=== PATIENT | male | born 1975 | race Caucasian/White ===

== ENCOUNTER 2018-02-20 15:32 | Observation (INO) | payer OTHER ==
[2018-02-20 15:48] VITALS: BMI 25.7
--- NOTE | 2018-02-20 15:54 | PDOC ---
Rapid Medical Evaluation Medical Evaluation: Allergies Allergy/AdvReac Type Severity Reaction Status Date / Time No Known Allergies Allergy Verified 02/20/18 15:44 Vital Signs Temp Pulse Resp BP Pulse Ox 98.6 F 83 18 108/75 96 02/20/18 15:44 02/20/18 15:44 02/20/18 15:44 02/20/18 15:44 02/20/18 15:44 02/20/18 15:49 I have performed a brief in-person evaluation of this patient. The patient presents with a chief complaint of: LUQ/LLQ pain with nausea for 4 days. report decreased appetite. Denies diarrhea, feels he might be constipated. Denies fever. Pertinent physical exam findings: A&O x 3. mild tenderness to LLQ w/o guarding or rebound I have ordered the following: CBC, CMP, Lactic acid. amylase, lipase The patient will proceed to the ED for further evaluation Discharge Disposition - Diagnosis LLQ abdominal pain - Referrals Referrals: Terry Hood MD [Primary Care Provider] - - Patient Instructions - Post Discharge Activity
--- NOTE | 2018-02-20 15:54 | PDOC ---
History of Present Illness - General Chief Complaint: Pain, Acute Stated Complaint: PAIN Time Seen by Provider: 02/20/18 15:54 - History of Present Illness Initial Comments: 02/20/18 15:54 Mr. Beverly is a 42 yo male w/ pmh of recent hospital stay for pancreatitis (-11/09) who presents for evaluation of 4-5 day history of nausea w/out vomiting and abdominal pain. Patient reports he took a left over percocet for the pain which he believes constipated him until this morning when he had a loose, foul smelling bowel movement. Patient reports this feels identical to his previous episode of pancreatitis. He describes his abdominal pain as moving and localized to left side of his abdomen. He also endorses intermittent chest pains unrelated to movement that he reports he also had during his previous pancreatitis episode. The patient denies shortness of breath, headache and dizziness. Denies fever, chills, and vomit Denies dysuria, frequency, urgency and hematuria. Past History - Past Medical History Allergies/Adverse Reactions: Allergies Allergy/AdvReac Type Severity Reaction Status Date / Time No Known Allergies Allergy Verified 02/20/18 15:44 Home Medications: Ambulatory Orders Atorvastatin Ca [Lipitor] 10 mg PO HS #7 tablet 11/09/17 oxyCODONE HCL [Roxicodone -] 5 mg PO Q6H PRN #12 tablet MDD 4 11/09/17 Anemia: No Asthma: No Cancer: No Cardiac Disorders: No CVA: No COPD: No CHF: No Dementia: No Diabetes: No GI Disorders: No Disorders: No HTN: No Hypercholesterolemia: No Liver Disease: No Seizures: No Thyroid Disease: No Other medical history: PANCREATITIS - Surgical History Abdominal Surgery: No Appendectomy: No Cardiac Surgery: No Cholecystectomy: No Lung Surgery: No Neurologic Surgery: No Orthopedic Surgery: No - Immunization History Immunization Up to Date: Yes - Suicide/Smoking/Psychosocial Hx Smoking History: Current every day smoker Have you smoked in the past 12 months: Yes Number of Cigarettes Smoked Daily: 12 Information on smoking cessation initiated: No 'Breaking Loose' booklet given: 11/03/17 Hx Alcohol Use: No Drug/Substance Use Hx: No Substance Use Type: None Hx Substance Use Treatment: No Review of Systems - Review of Systems Comments:: 02/20/18 15:55 GENERAL/CONSTITUTIONAL: No fever or chills. No weakness. HEAD, EYES, EARS, NOSE AND THROAT: No change in vision. No ear pain or discharge. No sore throat. CARDIOVASCULAR: +Chest pain as described w/ out shortness of breath RESPIRATORY: No cough, wheezing, or hemoptysis. GASTROINTESTINAL: +Nausea w/ bowel movement changes as described. Left sided moving abdominal pain. No vomiting. GENITOURINARY: No dysuria, frequency, or change in urination. MUSCULOSKELETAL: No joint or muscle swelling or pain. No neck or back pain. SKIN: No rash NEUROLOGIC: No headache, vertigo, loss of consciousness, or change in strength/ sensation. ENDOCRINE: No increased thirst. No abnormal weight change HEMATOLOGIC/LYMPHATIC: No anemia, easy bleeding, or history of blood clots. ALLERGIC/IMMUNOLOGIC: No hives or skin allergy. *Physical Exam - Vital Signs Last Vital Signs Temp Pulse Resp BP Pulse Ox 98.6 F 83 18 108/75 96 02/20/18 15:44 02/20/18 15:44 02/20/18 15:44 02/20/18 15:44 02/20/18 15:44 - Physical Exam Comments: 02/20/18 15:55 GENERAL: Awake, alert, and fully oriented, in no acute distress HEAD: No signs of trauma, normocephalic, atraumatic EYES: PERRLA, EOMI, sclera anicteric, conjunctiva clear ENT: Auricles normal inspection, hearing grossly normal, nares patent, oropharynx clear without exudates. Moist mucosa NECK: Normal ROM, supple, no lymphadenopathy, JVD, or masses LUNGS: No distress, speaks full sentences, clear to auscultation bilaterally HEART: Regular rate and rhythm, normal S1 and S2, no murmurs, rubs or gallops, peripheral pulses normal and equal bilaterally. ABDOMEN: Soft, nontender, normoactive bowel sounds. No guarding, no rebound. No masses EXTREMITIES: Normal inspection, Normal range of motion, no edema. No clubbing or cyanosis. NEUROLOGICAL: Cranial nerves II through XII grossly intact. Normal speech, normal gait, no focal sensorimotor deficits SKIN: Warm, Dry, normal turgor, no rashes or lesions noted. Moderate Sedation - Procedure Monitoring Vital Signs: Procedure Monitoring Vital Signs Temperature 98.6 F 02/20/18 15:44 Pulse Rate 83 02/20/18 15:44 Respiratory Rate 18 02/20/18 15:44 Blood Pressure 108/75 02/20/18 15:44 O2 Sat by Pulse Oximetry (%) 96 02/20/18 15:44 ED Treatment Course - LABORATORY CBC & Chemistry Diagram: 02/20/18 16:15 02/20/18 16:15 Medical Decision Making - Medical Decision Making 02/20/18 20:11 Mr. Beverly is a 42 yo male w/ pmh as described who presents for evaluation of symptoms c/w pancreatitis. Patient labs and CT sent for evaluation significant for elevated lipase as below. Patient pain controlled with IV morphine. No evidence of pancreatitis or other acute findings on CT. Patient requiring further IV pain meds and will admit for obs and pain control. 02/20/18 21:51 Patient signed out to Dr. Virgen for further evaluation. Laboratory Results - last 24 hr 02/20/18 02/20/18 02/20/18 16:15 16:15 16:15 WBC 9.5 RBC 4.66 Hgb 15.6 Hct 42.9 MCV 92.0 MCH 33.4 MCHC 36.3 H RDW 12.7 Plt Count 257 MPV 8.1 Absolute Neuts (auto) 6.5 Neutrophils % 68.7 D Lymphocytes % 25.6 D Monocytes % 4.3 Eosinophils % 1.2 Basophils % 0.2 Nucleated RBC % 0 Sodium 140 Potassium 4.1 Chloride 103 Carbon Dioxide 30 Anion Gap 7 L BUN 16 Creatinine 0.8 Creat Clearance w eGFR > 60 Random Glucose 98 Lactic Acid 1.0 Calcium 9.4 Total Bilirubin 1.5 H AST 15 ALT 22 Alkaline Phosphatase 90 Creatine Kinase 54 Troponin I < 0.02 Total Protein 7.1 Albumin 4.2 Total Amylase 94 Lipase 661 H *DC/Admit/Observation/Transfer Diagnosis at time of Disposition: LLQ abdominal pain - Discharge Dispostion Decision to Admit order: Yes - Referrals - Patient Instructions - Post Discharge Activity
[2018-02-20] MEDS ORDERED: morphine CARPU-JECT 4 MG/1 ML DISP.SYRIN IVPUSH ONE ×2 (16:08→20:13)
[2018-02-20] MEDS ORDERED: morphine SULFATE 4 MG/ML VIAL ONE ×2 (16:20→20:40)
[2018-02-20 16:41] LABS: BASO % 0.2 % (0-2.0); EOS % 1.2 % (0-4.5); HEMATOCRIT 42.9 % (35.4-49); HEMOGLOBIN 15.6 GM/dL (11.7-16.9); LYMPH % 25.6 % (8-40); MCH 33.4 pg (25.7-33.7); MCHC 36.3 g/dl (32.0-35.9); MEAN PLT VOLUME 8.1 fl (7.5-11.1); MONO % 4.3 % (3.8-10.2); NEUT % 68.7 % (42.8-82.8); PLATELET COUNT 257 K/MM3 (134-434); RBC 4.66 M/mm3 (4.00-5.60); RDW 12.7 % (11.9-15.9); WHITE BLOOD COUNT 9.5 K/mm3 (4.0-10.0)
--- NOTE | 2018-02-20 16:52 | PDOC ---
Attending Attestation - HPI HPI: 02/20/18 17:34 The patient is a 42 year old male with a significant past medical history of pancreatitis (hospitalized from 11/02-11/09), who presents with a dull, constant abdominal pain which intermittently increases in intensity as a stabbing sensation to the left upper quadrant. He reports the pain is a constant, dull, 6 /10 ache. He states he also has some associated nausea. He reports this feels identical to his pancreatitis. He denies vomiting. He denies taking medications for his symptoms. He denies any other complaints. TAYO. Dr. Hood PCP - Physicial Exam PE: 02/20/18 17:37 GENERAL: Well developed, well nourished. Awake and alert. No acute distress. HEENT: Normocephalic, atraumatic. PERRLA, EOMI. No conjunctival pallor. Sclera are non- icteric. Moist mucous membranes. Oropharynx is clear. NECK: Supple. Full ROM. No JVD. Carotid pulses 2+ and symmetric, without bruits. No thyromegaly. No lymphadenopathy. CARDIOVASCULAR: Regular rate and rhythm. No murmurs, rubs, or gallops. Distal pulses are 2+ and symmetric. PULMONARY: No evidence of respiratory distress. Lungs clear to auscultation bilaterally. No wheezing, rales or rhonchi. ABDOMINAL: (+) mild LUQ tenderness. Soft. Non-distended. No rebound or guarding. No organomegaly. Normoactive bowel sounds. MUSCULOSKELETAL Normal range of motion at all joints. No bony deformities or tenderness. No CVA tenderness. EXTREMITIES: No cyanosis. No clubbing. No edema. No calf tenderness. SKIN: Warm and dry. Normal capillary refill. No rashes. No jaundice. NEUROLOGICAL: Alert, awake, appropriate. Cranial nerves 2-12 intact. Normoreflexic in the upper and lower extremities. Normal speech. Toes are down-going bilaterally. Gait is normal without ataxia. PSYCHIATRIC: Cooperative. Good eye contact. Appropriate mood and affect. - Medical Decision Making 02/20/18 17:37 Documentation prepared by Patricia Quick, acting as medical director occupational health for Asha Virgen MD <Patricia Quick - Last Filed: 02/20/18 17:34> - Resident Resident Name: Andres Carson - ED Attending Attestation I have performed the following: I have examined & evaluated the patient, The case was reviewed & discussed with the resident, I agree w/resident's findings & plan, Exceptions are as noted - Medical Decision Making 02/20/18 19:17 42 yo male p/w LUQ pain . Elevated lipase,sent for ct scan 02/20/18 20:28 ct scan is negative for acute pancreatitis but he has persistent pain and nausea , admit <Asha iVrgen - Last Filed: 02/20/18 20:29>
[2018-02-20 17:11] LABS: ALBUMIN 4.2 g/dl (3.4-5.0); ALK PHOS 90 U/L (45-117); AMYLASE 94 U/L (25-115); ANION GAP 7 MMOL/L (8-16); BILIRUBIN,TOTAL 1.5 mg/dL (0.2-1); BLOOD UREA NITROGEN 16 mg/dL (7-18); CALCIUM 9.4 mg/dL (8.5-10.1); CHLORIDE 103 mmol/L (98-107); CO2 30 mmol/L (21-32); CREATININE 0.8 mg/dL (0.55-1.3); GLUCOSE,RANDOM 98 mg/dL (74-106); LIPASE 661 U/L (73-393); POTASSIUM 4.1 mmol/L (3.5-5.1); SGOT/AST 15 U/L (15-37); SGPT/ALT 22 U/L (13-61); SODIUM 140 mmol/L (136-145); TOT PROT 7.1 g/dl (6.4-8.2)
[2018-02-20] MEDS ORDERED: SODIUM CHLORIDE 1,000 ML IV STA ×2 (17:28→20:18)
[2018-02-20] MEDS ORDERED: FAMOTIDINE 20 MG/50 ML IVPB 20 MG/50 ML MG IVPB ONE ×2 (17:28→18:09)
[2018-02-20] MEDS ORDERED: MAG HYDROX/AL HYDROX/SIMETH -MYLANTA- ORAL SUSPENSION PO ONE (17:29)
[2018-02-20] MEDS ORDERED: ONDANSETRON 4 MG/2 ML VIAL IVPUSH ONE (17:29)
[2018-02-20] MEDS ORDERED: ONDANSETRON 4 MG/2 ML VIAL ONE (18:09)
[2018-02-20] MEDS ORDERED: MAG HYDROX/AL HYDROX/SIMETH 30 ML UNIT-DOSE CUP ONE (18:10)
[2018-02-20] MEDS: LACTATED RINGERS SOLUTION 1,000 ML/1,000 ML INFUS.BAG IV SCH (23:05)
--- NOTE | 2018-02-20 23:57 | PN ---
Teaching Attending Note Name of Resident: Gordon Rubin ATTENDING PHYSICIAN STATEMENT I saw and evaluated the patient. I reviewed the resident's note and discussed the case with the resident. I agree with the resident's findings and plan as documented. SUBJECTIVE: Seen and examined; please see resident note for further information. In summation this is a 42 y/o CM with a PMH of pancreatitis, HLD who is noncompliant with his home medication, presents to the ER with a CC of abdominal pain that is similar to his previous bouts of pancreatitis. This pain has been worsening over the past several days and is not made better or worse with anything. He is hemodynamically stable and afebrile. The last time he had this pain he was admitted to the hospital and had a MRCP done which revealed a benign hepatic hemangioma and edematous pancreas consistent with acute pancreatitis. He improved and was discharged home after being seen by Dr. Askew. 10 sys ROS done and negative aside from HPI PMH and PSH reviewed FH asked and noncontributory Socially he is a former drinker/drug user but states that he stopped 10 years ago. Was noncompliant with his HLD med because he 'felt better' OBJECTIVE: VS, labs, imaging reviewed NAD, AAO, resting in bed Tender in upper abdomen, +BS, nondistended, nontympanic RRR s1/2 no mgr Lungs CTAB w/ sym exp CN2-12 wnl, no fnd Normal mood, appropriate behavior Labs show lipase in 600-range, slightly elevated bilirubin at 1.5, CBC unremarkable. Imaging reviewed; CT abdomen/pelvis unrevealing for acute or chronic pancreatitis. Old MRCP reviewed. RUQ u/s reviewed; it was unremarkable in terms of assessment of the hepatobiliary/pancreatic area. EKG reviewed ASSESSMENT AND PLAN: This is a 42 y/o CM presenting to the ER with intractable abdominal pain, nausea and slightly elevated lipase. 1) Elevated lipase with nausea and abdominal pain -Concerning for pancreatitis but the lipase not frankly even twice the upper limit of normal; he does also have a negative CT scan. Still, he is having intractable symptoms. We will place him on high rate of IVF with LR @125, we will control his pain and nausea. He will be NPO and advanced as tolerated. We will defer repeating the MRCP to GI. IV protonix for GI px when NPO 2) Elevated Bilirubin -RUQ US shows the hemangioma that was known previously but is otherwise normal. -Will fractionate and trend CMP; further investigation pending the trend. 3) HLD -Restart statin when clinically appropriate. Tunnel Heading Supervisor regarding importance of use. 4) Drug Abuse, in remission -Check tox; monitor. Would expect to see opiates as he was given MSO4. FENA -LR@125 -PRN replete -NPO -As tolerated Full Code
[2018-02-21] MEDS ORDERED: ACETAMINOPHEN INJECTION 100 ML IVPB ONE (00:12)
[2018-02-21] MEDS: ACETAMINOPHEN 1000 MG/100 ML VIAL (NON FORMULARY) IVPB PRN ×2 (00:21→09:29)
[2018-02-21] MEDS ORDERED: ONDANSETRON 4 MG/2 ML VIAL IVPUSH PRN (00:25)
--- NOTE | 2018-02-21 00:27 | HP ---
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 Accompanied by nausea w/o vomiting and loose foul-smelling greasy stools. Exacerbated by eating. Reports non-compliance with statin prescribed at prior hospitalization. Denies EtOH use. Denies dietary changes. On presentation VS wnl. Labs show lipase 661, T bilirubin 1.5, labs otherwise wnl. Contrast CT a/p shows no evidence of acute or chronic pancreatitis. RUQ US re-identifies known hepatic hemangioma, otherwise no abnormalities. Given morphine, mylanta, saline, pepcid, zofran in ED. ER course was notable for: (1) Lipase 661 (2) Contrast CT a/p unremarkable (3) RUQ US unremarkable Recent Travel: PAST MEDICAL HISTORY: As per HPI PAST SURGICAL HISTORY: As per HPI Social History: As per HPI Family History: Allergies No Known Allergies Allergy (Verified 02/20/18 15:44) HOME MEDICATIONS: Home Medications Medication Instructions Recorded Atorvastatin Ca [Lipitor] 10 mg PO HS #7 tablet 11/09/17 oxyCODONE HCL [Roxicodone -] 5 mg PO Q6H PRN #12 tablet MDD 4 11/09/17 REVIEW OF SYSTEMS As per HPI PHYSICAL EXAMINATION Vital Signs - 24 hr 02/20/18 02/20/18 15:44 19:20 Temperature 98.6 F 97.6 F Pulse Rate 83 Pulse Rate [ 75 Left Radial] Respiratory 18 20 Rate Blood Pressure 108/75 Blood Pressure 114/74 [Left Arm] O2 Sat by Pulse 96 99 Oximetry (%) GENERAL: A&Ox3, in moderate pain HEAD: NC/AT EYES: PERRLA, EOMI EARS, NOSE, THROAT: Moist mucous membranes. NECK: Normal range of motion, supple without lymphadenopathy, JVD, or masses. LUNGS: CTA b/l, inspiratory effort limited by pain HEART: Regular rate and rhythm, normal S1 and S2 without murmur, rub or gallop. ABDOMEN: +bs, soft, no reproducible TTP MUSCULOSKELETAL: Normal range of motion at all joints. No bony deformities or tenderness. No CVA tenderness. UPPER EXTREMITIES: 2+ pulses, warm, well-perfused. No cyanosis. No clubbing. No peripheral edema. LOWER EXTREMITIES: 2+ pulses, warm, well-perfused. No calf tenderness. No peripheral edema. NEUROLOGICAL: Cranial nerves II-XII intact. Normal speech. Normal gait. PSYCHIATRIC: Cooperative. Good eye contact. Appropriate mood and affect. SKIN: Warm, dry, normal turgor, no rashes or lesions noted, normal capillary refill. Laboratory Results - last 24 hr 02/20/18 02/20/18 02/20/18 16:15 16:15 16:15 WBC 9.5 RBC 4.66 Hgb 15.6 Hct 42.9 MCV 92.0 MCH 33.4 MCHC 36.3 H RDW 12.7 Plt Count 257 MPV 8.1 Absolute Neuts (auto) 6.5 Neutrophils % 68.7 D Lymphocytes % 25.6 D Monocytes % 4.3 Eosinophils % 1.2 Basophils % 0.2 Nucleated RBC % 0 Sodium 140 Potassium 4.1 Chloride 103 Carbon Dioxide 30 Anion Gap 7 L BUN 16 Creatinine 0.8 Creat Clearance w eGFR > 60 Random Glucose 98 Lactic Acid 1.0 Calcium 9.4 Total Bilirubin 1.5 H AST 15 ALT 22 Alkaline Phosphatase 90 Creatine Kinase 54 Troponin I < 0.02 Total Protein 7.1 Albumin 4.2 Total Amylase 94 Lipase 661 H ASSESSMENT/PLAN: 42 y/o M w/ PMHx acute pancreatitis hospitalized in October, hypertriglyceridemia , IVDA (abstinent x 8 years), p/w sudden onset LUQ pain, nausea w/o vomiting, steatorrhea x 4-5 days. #abd pain -lipase 661 is elevated but below diagnostic threshold for pancreatitis -contrast CT w/o evidence of pancreatitis -patient has been non-compliant w/ statin -residual injury from prior episode may be blunting lipase level -GI consulted -consider MRCP -IV tylenol PRN for pain -LR @ 125 -NPO -U tox pending -Zofran PRN #HLD -restart statin #FEN -LR @ 125 -monitor and replete lytes -NPO at this time #PPx -DVT: SCDs -GI: not indicated #code -full #dispo -obs Visit type - Emergency Visit Emergency Visit: Yes ED Registration Date: 02/20/18 Care time: The patient presented to the Emergency Department on the above date and was hospitalized for further evaluation of their emergent condition. - New Patient This patient is new to me today: Yes Date on this admission: 02/21/18 - Critical Care Critical Care patient: No
[2018-02-21] MEDS: ATORVASTATIN CA 10 MG TABLET (FP) PO SCH ×2 (00:37→21:47)
[2018-02-21] MEDS ORDERED: morphine SULFATE 4 MG/ML VIAL IVPUSH PRN (04:25)
[2018-02-21 06:38] LABS: BASO % 0.3 % (0-2.0); EOS % 1.5 % (0-4.5); HEMATOCRIT 39.5 % (35.4-49); HEMOGLOBIN 13.3 GM/dL (11.7-16.9); LYMPH % 37.9 % (8-40); MCH 31.7 pg (25.7-33.7); MCHC 33.7 g/dl (32.0-35.9); MEAN CELL VOLUME 93.9 fl (80-96); NEUT % 53.3 % (42.8-82.8); PLATELET COUNT 206 K/MM3 (134-434); RDW 12.6 % (11.9-15.9); WHITE BLOOD COUNT 6.6 K/mm3 (4.0-10.0)
[2018-02-21 07:00] LABS: ANION GAP 6 MMOL/L (8-16); BLOOD UREA NITROGEN 12 mg/dL (7-18); CALCIUM 8.2 mg/dL (8.5-10.1); CHLORIDE 107 mmol/L (98-107); CHOLESTEROL 132 mg/dL (50-200); CO2 30 mmol/L (21-32); CREATININE 0.7 mg/dL (0.55-1.3); GLUCOSE,RANDOM 84 mg/dL (74-106); HDL CHOLESTEROL 34 mg/dL (40-60); MAGNESIUM 1.9 mg/dL (1.8-2.4); PHOSPHOROUS 3.2 mg/dL (2.5-4.9); POTASSIUM 3.9 mmol/L (3.5-5.1); SODIUM 143 mmol/L (136-145); TRIGLYCERIDES 128 mg/dL (0-150)
--- NOTE | 2018-02-21 09:51 | EKG ---
Test Reason : Blood Pressure : / mmHG Vent. Rate : 074 BPM Atrial Rate : 074 BPM P-R Int : 132 ms QRS Dur : 084 ms QT Int : 356 ms P-R-T Axes : 060 067 034 degrees QTc Int : 395 ms NORMAL SINUS RHYTHM POSSIBLE ANTERIOR INFARCT , AGE UNDETERMINED ABNORMAL ECG WHEN COMPARED WITH ECG OF 07-NOV-2017 10:46, NO SIGNIFICANT CHANGE WAS FOUND Confirmed by NAT KELLEY, FAHAD ([id number]) on 02/21/2018 9:51:15 AM Referred By: Confirmed By:FAHAD JOHNS MD
[2018-02-21] MEDS ORDERED: PANTOPRAZOLE SODIUM 40 MG VIAL IVPUSH SCH (10:00)
[2018-02-21] MEDS ORDERED: oxyCODONE HCL 5 MG TABLET PO PRN (10:12)
[2018-02-21] MEDS ORDERED: DOCUSATE SODIUM 100 MG CAPSULE (FP) PO PRN (10:12)
--- NOTE | 2018-02-21 10:43 | PN ---
Physical Exam: SUBJECTIVE: Patient seen and examined. Pt. endorses pain when eating or with deep breaths to 8/10. Currently at rest the pain is 5-6/10. PT. states that there is intermittent stabbing pain for 4-5 days. Pt. states that he last had a BM yesterday morning and that it was not greasy because he took a percocet, it had been greasy over the last 4 days prior. Pt. believes is is constipated and is asking for calace and senna because he knows that the "morphine binds him up. " OBJECTIVE: Vital Signs Period Temp Pulse Resp BP Sys/Urias Pulse Ox Last 24 Hr 97.5 F-98.6 F 70-83 18-20 107-137/58-76 96-99 GENERAL: The patient is awake, alert, and fully oriented, in no acute distress. HEAD: Normal with no signs of trauma. EYES: PERRL, Sclera anicteric, conjunctiva clear. No ptosis. ENT: Ears normal, nares patent, oropharynx clear without exudates, moist mucous membranes. NECK: Trachea midline, full range of motion, supple. LUNGS: Limited 2/2 pain?, Breath sounds equal, clear to auscultation bilaterally -, no wheezes, no crackles, no accessory muscle use. HEART: Regular rate and rhythm, S1, S2 with questionable murmur. ABDOMEN: Soft, nontender, nondistended, sluggish bowel sounds, no guarding, no rebound, no hepatosplenomegaly, no masses. EXTREMITIES: 2+ dorsal pedal pulses, warm, no calf tenderness, well-perfused, no edema. NEUROLOGICAL: Normal speech, gait not observed. PSYCH: Normal mood, normal affect. SKIN: Warm, dry, normal turgor, no rashes or lesions noted Laboratory Results - last 24 hr 02/20/18 02/20/18 02/20/18 16:15 16:15 16:15 WBC 9.5 RBC 4.66 Hgb 15.6 Hct 42.9 MCV 92.0 MCH 33.4 MCHC 36.3 H RDW 12.7 Plt Count 257 MPV 8.1 Absolute Neuts (auto) 6.5 Neutrophils % 68.7 D Lymphocytes % 25.6 D Monocytes % 4.3 Eosinophils % 1.2 Basophils % 0.2 Nucleated RBC % 0 Sodium 140 Potassium 4.1 Chloride 103 Carbon Dioxide 30 Anion Gap 7 L BUN 16 Creatinine 0.8 Creat Clearance w eGFR > 60 Random Glucose 98 Lactic Acid 1.0 Calcium 9.4 Phosphorus Magnesium Total Bilirubin 1.5 H AST 15 ALT 22 Alkaline Phosphatase 90 Creatine Kinase 54 Troponin I < 0.02 Total Protein 7.1 Albumin 4.2 Triglycerides Cholesterol Total LDL Cholesterol HDL Cholesterol Total Amylase 94 Lipase 661 H 02/21/18 02/21/18 02/21/18 06:15 06:15 06:15 WBC 6.6 RBC 4.20 Hgb 13.3 Hct 39.5 MCV 93.9 MCH 31.7 MCHC 33.7 RDW 12.6 Plt Count 206 MPV 8.0 Absolute Neuts (auto) 3.5 Neutrophils % 53.3 D Lymphocytes % 37.9 D Monocytes % 7.0 Eosinophils % 1.5 Basophils % 0.3 Nucleated RBC % 0 Sodium 143 Potassium 3.9 Chloride 107 Carbon Dioxide 30 Anion Gap 6 L BUN 12 Creatinine 0.7 Creat Clearance w eGFR > 60 Random Glucose 84 Lactic Acid Calcium 8.2 L Phosphorus 3.2 Magnesium 1.9 Total Bilirubin AST ALT Alkaline Phosphatase Creatine Kinase Troponin I < 0.02 Total Protein Albumin Triglycerides 128 Cholesterol 132 Total LDL Cholesterol 78 HDL Cholesterol 34 L Total Amylase Lipase 02/21/18 06:15 WBC RBC Hgb Hct MCV MCH MCHC RDW Plt Count MPV Absolute Neuts (auto) Neutrophils % Lymphocytes % Monocytes % Eosinophils % Basophils % Nucleated RBC % Sodium Potassium Chloride Carbon Dioxide Anion Gap BUN Creatinine Creat Clearance w eGFR Random Glucose Lactic Acid Calcium Phosphorus Magnesium Total Bilirubin AST ALT Alkaline Phosphatase Creatine Kinase Troponin I Total Protein Albumin Triglycerides Cancelled Cholesterol Cancelled Total LDL Cholesterol Cancelled HDL Cholesterol Cancelled Total Amylase Lipase Active Medications Home Medications Medication Instructions Recorded Atorvastatin Ca [Lipitor] 10 mg PO HS #7 tablet 11/09/17 oxyCODONE HCL [Roxicodone -] 5 mg PO Q6H PRN #12 tablet MDD 4 11/09/17 Current Medications Acetaminophen (Ofirmev Injection -) 1,000 mg IVPB Q6H PRN PRN Reason: PAIN LEVEL 1-5 Last Admin: 02/21/18 09:29 Dose: 1,000 mg Atorvastatin Calcium (Lipitor -) 10 mg PO HS AVINASH Last Admin: 02/21/18 00:37 Dose: 10 mg Docusate Sodium (Colace -) 100 mg PO BID PRN PRN Reason: CONSTIPATION Last Admin: 02/21/18 14:14 Dose: 100 mg Lactated Ringer's (Lactated Ringers Solution) 1,000 ml in 1,000 mls @ 125 mls/ hr IV ASDIR AVINASH Last Admin: 02/21/18 12:36 Dose: 125 mls/hr Ondansetron HCl (Zofran Injection) 4 mg IVPUSH Q6H PRN PRN Reason: NAUSEA AND/OR VOMITING Last Admin: 02/21/18 12:33 Dose: 5 mg Pantoprazole Sodium (Protonix Iv) 40 mg IVPUSH DAILY [facility] [place] Last Admin: 02/21/18 09:30 Dose: 40 mg Senna (Senna -) 1 tab PO HS [facility] [place] ASSESSMENT/PLAN: A 42 y.o. M w/ PMHx of acute pancreatitis hospitalized in October, hypertriglyceridemia, IVDA (last used 8 years ago), presents with sudden onset LUQ abdominal pain, nausea w/o vomiting, and steatorrhea for 4-5 days. #Abdominal Pain -lipase 661 but not 3x upper limit - low suspicion for pacreatitis -contrast CT w/o evidence of pancreatitis -patient denies taking statin -GI (Dr. Smith) consulted -IV tylenol PRN for pain -LR @ 125 -Diet advanced to full liquid -U tox pending -Zofran PRN #HLD -c/w statin #FEN -LR @ 125 -monitor and replete lytes -Full liquid Diet #PPx -DVT: SCDs -GI: not indicated #Code -full #Dispo -obs Visit type - Emergency Visit Emergency Visit: Yes ED Registration Date: 02/20/18 Care time: The patient presented to the Emergency Department on the above date and was hospitalized for further evaluation of their emergent condition. - New Patient This patient is new to me today: Yes Date on this admission: 02/21/18 - Critical Care Critical Care patient: No - Discharge Referral Referred to [facility] Med P.C.: No
[2018-02-21 10:49] LABS: BILIRUBIN,TOTAL 1.3 mg/dL (0.2-1)
[2018-02-21] MEDS: LACTATED RINGERS SOLUTION 1,000 ML/1,000 ML INFUS.BAG IV SCH ×2 (12:36→21:47)
--- NOTE | 2018-02-21 15:00 | PN ---
Teaching Attending Note Name of Resident: Ana Paula Dawson ATTENDING PHYSICIAN STATEMENT I saw and evaluated the patient. I reviewed the resident's note and discussed the case with the resident. I agree with the resident's findings and plan as documented. SUBJECTIVE: has ABd pain . no fever or chills. abd pain is in LUQ and radiates to L groin. feels exactly like previous episode of acute pancreatitis . 6/10 in severity. No N/V denies alcohol or drug use OBJECTIVE: NAD , comfortable in bed CV: RRR, no mRG Lungs: CTAB ext : no edema Abd: soft, NT, ND ,NL BS ASSESSMENT AND PLAN: 42 y/o man with h/o remote polysubstance abuse, and hyperlipidemia , who presented with abd pain. 1- Abd pain: not clear of etiology this time. although he has slight elevation ofhis lipase, his abd is not tender, and CT does not show any signs of acute pancreatitis. ? gastritis, ? gastric ulcer, ? IBS . - start liquid diet - monitor . - dc iv morphine. patient looks comfortable in bed - add oxy - PPI - IVF . - GI eval pending - MRCP from last admission reviewed: hemangioma and acute pancreatitis . No need to repeat 2- HLP : cont home statin possible dc tomorrow
[2018-02-21 19:04] LABS: COCAINE, UR NEGATIVE ng/ml (CUTOFF=300); METHADONE, UR NEGATIVE ng/ml (CUTOFF=300); PHENCYCLIDINE,URINE NEGATIVE ng/ml (CUTOFF=25); URINE AMPHETAMINES NEGATIVE ng/ml (CUTOFF=500); URINE BARBITURATES NEGATIVE ng/ml (CUTOFF=200); URINE BENZODIAZEPINES NEGATIVE ng/ml (CUTOFF=200)
[2018-02-21 19:07] LABS: OPIATES, URI POSITIVE ng/ml (CUTOFF=300)
--- NOTE | 2018-02-21 21:16 | CONS ---
DATE OF CONSULTATION: 02/21/2018 The patient is a 42-year-old man with a past medical history of acute pancreatitis, hospitalized in October also with hypertriglyceridemia and has been off of his medications for 2-3 months, IV drug abuse and quit 8 years ago, who presents to the hospital with a 4-day history of left-sided abdominal pain. He states his current symptoms are similar to his episode of pancreatitis in the past, also with some nausea. He denies any vomiting, fevers, or chills. He has also had some loose intermittent bowel movements. He denies any blood in the stool or melena. He has never had an upper endoscopy or colonoscopy. He questionably states he may have had a full colonoscopy 15 years ago; however, does not recall. PAST MEDICAL AND SURGICAL HISTORY: As listed in the HPI. ALLERGIES: No known drug allergies. SOCIAL HISTORY: Previous IV drug abuse, quit 8 years ago. Does not smoke. Does not drink alcohol. REVIEW OF SYSTEMS: Negative except for pertinent positives in the HPI. FAMILY HISTORY: No history of GI, gynecological, malignancy, or pancreatic disease. HOME MEDICATIONS: Include atorvastatin for which he has not been taking. PHYSICAL EXAMINATION: Vital Signs: Temperature 97, pulse 78, blood pressure 139/78, respiratory rate 12, pulse oximetry 97% on room air. General: No acute distress. HEENT: Anicteric sclerae. Cardiovascular: S1, S2. Regular rate and rhythm. Lungs: Bilaterally clear to auscultation. Abdomen: Soft, nontender. Extremities: No edema. LABORATORY: White blood cell count 6.6, hemoglobin 13, hematocrit 39, MCV 93, platelet count 206. Sodium 143, potassium 3.9, BUN 12, creatinine 0.7, lactic acid 1, glucose 84. Total bilirubin is 1.3, AST 15, ALT 22. Troponins are negative. Triglycerides 128, HDL 34, total amylase 94, lipase 661. Opiate screen is positive. Abdomen and pelvis CT scan was performed and reveals no evidence of pancreatic mass, acute or chronic pancreatitis, suspected hemangioma out of the right lobe of the liver. Sonogram was recommended. There is no other pathology on this IV contrast study. Apparently he had a recent MRI, which identified the 2 hemangiomas in the liver. IMPRESSION: Left-sided abdominal pain with lipase of 600. These findings do not meet biochemical criteria for acute pancreatitis. In addition, his current symptoms and clinical presentation are not consistent with an acute bout of pancreatitis. Unclear etiology of his current pain syndrome. It may be secondary to underlying abuse, peptic ulcer disease, or functional etiology. RECOMMENDATION: Will obtain an abdominal sonogram to further evaluate the liver lesions. I would also advance his diet as tolerated. I placed him on Protonix 40 mg p.o. daily. He would benefit from a diagnostic upper endoscopy and colonoscopy. He currently is refusing these tests. Followup the remainder of his toxicology screen. This patient will be followed by the GI service. DO KARIN MONTENEGRO/[id number]
[2018-02-21] MEDS ORDERED: SENNOSIDES 8.6MG TABLET (FP) PO SCH (22:00)
[2018-02-22] MEDS: LACTATED RINGERS SOLUTION 1,000 ML/1,000 ML INFUS.BAG IV SCH ×2 (06:30→07:32)
[2018-02-22 07:25] LABS: HEMATOCRIT 40.3 % (35.4-49); HEMOGLOBIN 13.8 GM/dL (11.7-16.9); MCHC 34.2 g/dl (32.0-35.9); MEAN CELL VOLUME 93.4 fl (80-96); PLATELET COUNT 219 K/MM3 (134-434); RBC 4.31 M/mm3 (4.00-5.60); RDW 12.7 % (11.9-15.9); WHITE BLOOD COUNT 7.6 K/mm3 (4.0-10.0)
--- NOTE | 2018-02-22 08:18 | DS ---
Physical Exam: SUBJECTIVE: Patient seen and examined OBJECTIVE: Vital Signs Period Temp Pulse Resp BP Sys/Urias Pulse Ox Last 24 Hr 97.5 F-98.6 F 70-78 20-22 104-139/58-78 98-98 PHYSICAL EXAM GENERAL: The patient is awake, alert, and fully oriented, in no acute distress. HEAD: Normal with no signs of trauma. EYES: PERRL, extraocular movements intact, sclera anicteric, conjunctiva clear. ENT: Ears normal, nares patent, oropharynx clear without exudates, moist mucous membranes. NECK: Trachea midline, full range of motion, supple. LUNGS: Breath sounds equal, clear to auscultation bilaterally, no wheezes, no crackles, no accessory muscle use. HEART: Regular rate and rhythm, S1, S2 without murmur, rub or gallop. ABDOMEN: Soft, nontender, nondistended, normoactive bowel sounds, no guarding, no rebound, no hepatosplenomegaly, no masses. EXTREMITIES: 2+ pulses, warm, well-perfused, no edema. NEUROLOGICAL: Cranial nerves II through XII grossly intact. Normal speech, gait not observed. PSYCH: Normal mood, normal affect. SKIN: Warm, dry, normal turgor, no rashes or lesions noted. LABS Laboratory Results - last 24 hr 02/21/18 02/21/18 02/22/18 06:15 17:00 06:30 WBC 7.6 RBC 4.31 Hgb 13.8 Hct 40.3 MCV 93.4 MCH 32.0 MCHC 34.2 RDW 12.7 Plt Count 219 MPV 8.0 Sodium 143 Potassium 3.9 Chloride 107 Carbon Dioxide 30 Anion Gap 6 L BUN 12 Creatinine 0.7 Creat Clearance w eGFR > 60 Random Glucose 84 Calcium 8.2 L Phosphorus 3.2 Magnesium 1.9 Total Bilirubin 1.3 H Triglycerides 128 Cholesterol 132 Total LDL Cholesterol 78 HDL Cholesterol 34 L Opiates Screen Positive A* Methadone Screen Negative Barbiturate Screen Negative Phencyclidine Screen Negative Ur Amphetamines Screen Negative MDMA (Ecstasy) Screen Negative Benzodiazepines Screen Negative Cocaine Screen Negative U Marijuana (THC) Screen Negative HOSPITAL COURSE: Date of Admission:02/20/18 Date of Discharge: 02/22/18 Discharge Summary Reason For Visit: LET LOWER QUADRANT PAIN Current Active Problems LLQ abdominal pain (Acute) Condition: Improved - Instructions Diet, Activity, Other Instructions: You came in for abdominal pain. We gave you supportive care with fluids and pain management. Please continue all your prescribed medications as they were prescribed. Please follow up with your Primary Care Doctor within 1 week. Please return to the ER if you are experiencing worsening abdominal pain, diarrhea that won't stop, blood in your stool, or any other concerning symptoms. Referrals: Terry Hood MD [Primary Care Provider] - Disposition: HOME - Home Medications Comprehensive Discharge Medication List: Ambulatory Orders Atorvastatin Ca [Lipitor] 10 mg PO HS #7 tablet 11/09/17 oxyCODONE HCL [Roxicodone -] 5 mg PO Q6H PRN #12 tablet MDD 4 11/09/17 - Discharge Referral Referred to [facility] Med P.C.: No
[2018-02-22 08:21] LABS: ALBUMIN 3.4 g/dl (3.4-5.0); ALK PHOS 75 U/L (45-117); ANION GAP 8 MMOL/L (8-16); BILIRUBIN,TOTAL 1.8 mg/dL (0.2-1); BLOOD UREA NITROGEN 9 mg/dL (7-18); CALCIUM 8.9 mg/dL (8.5-10.1); CHLORIDE 104 mmol/L (98-107); CO2 29 mmol/L (21-32); CREATININE 0.7 mg/dL (0.55-1.3); GLUCOSE,RANDOM 80 mg/dL (74-106); PHOSPHOROUS 3.7 mg/dL (2.5-4.9); SGOT/AST 14 U/L (15-37); SGPT/ALT 19 U/L (13-61); SODIUM 141 mmol/L (136-145); TOT PROT 5.7 g/dl (6.4-8.2)
[2018-02-22 08:49] VITALS: BP 109/71; PULSE 75; TEMP 98.2
[2018-02-22] MEDS ORDERED: PANTOPRAZOLE 40 MG TABLET (FP) PO SCH (10:00)
--- NOTE | 2018-02-22 10:26 | PN ---
Teaching Attending Note Name of Resident: Tommie Caruso ATTENDING PHYSICIAN STATEMENT I saw and evaluated the patient. I reviewed the resident's note and discussed the case with the resident. I agree with the resident's findings and plan as documented. SUBJECTIVE: no fever or chills. L sided abd pain is 2/10 today. present when he laughs or take deep breath . no diarrhea . OBJECTIVE: NAD , comfortable in bed and walking to bathroom CV: RRR, no mRG Lungs: CTAB ext : no edema Abd: soft, NT, ND ,NL BS ASSESSMENT AND PLAN: 42 y/o man with h/o remote polysubstance abuse, and hyperlipidemia , who presented with abd pain. 1- Abd pain: not clear of etiology this time.pancreatitis is not suspected. ? gastritis, ? gastric ulcer, ? IBS . - change diet to regular /low fat - cont PPI , even after dc x 2 weeks and evaluate response - US this admission showed liver hemangioma again. f/u as out pt - pt refused EGD and colo again this am . and he is resistant to getting them as out pt as well . he was advised to follow with GI 2- HLP : cont home statin DC home today
--- NOTE | 2018-02-22 11:58 | DS ---
Physical Exam: SUBJECTIVE: Patient seen and examined OBJECTIVE: Vital Signs Period Temp Pulse Resp BP Sys/Urias Pulse Ox Last 24 Hr 97.6 F-98.6 F 70-78 20-22 104-139/58-78 98-98 PHYSICAL EXAM GENERAL: The patient is awake, alert, and fully oriented, in no acute distress. HEAD: Normal with no signs of trauma. EYES: PERRL, extraocular movements intact, sclera anicteric, conjunctiva clear. ENT: Ears normal, nares patent, oropharynx clear without exudates, moist mucous membranes. NECK: Trachea midline, full range of motion, supple. LUNGS: Breath sounds equal, clear to auscultation bilaterally, no wheezes, no crackles, no accessory muscle use. HEART: Regular rate and rhythm, S1, S2 without murmur, rub or gallop. ABDOMEN: Soft, nontender, nondistended, normoactive bowel sounds, no guarding, no rebound, no hepatosplenomegaly, no masses. EXTREMITIES: 2+ pulses, warm, well-perfused, no edema. NEUROLOGICAL: Cranial nerves II through XII grossly intact. Normal speech, gait not observed. PSYCH: Normal mood, normal affect. SKIN: Warm, dry, normal turgor, no rashes or lesions noted. LABS Laboratory Results - last 24 hr 02/21/18 02/22/18 02/22/18 17:00 06:30 06:30 WBC 7.6 RBC 4.31 Hgb 13.8 Hct 40.3 MCV 93.4 MCH 32.0 MCHC 34.2 RDW 12.7 Plt Count 219 MPV 8.0 Sodium 141 Potassium 4.0 Chloride 104 Carbon Dioxide 29 Anion Gap 8 BUN 9 Creatinine 0.7 Creat Clearance w eGFR > 60 Random Glucose 80 Calcium 8.9 Phosphorus 3.7 Magnesium 2.0 Total Bilirubin 1.8 H AST 14 L ALT 19 Alkaline Phosphatase 75 Total Protein 5.7 L Albumin 3.4 Opiates Screen Positive A* Methadone Screen Negative Barbiturate Screen Negative Phencyclidine Screen Negative Ur Amphetamines Screen Negative MDMA (Ecstasy) Screen Negative Benzodiazepines Screen Negative Cocaine Screen Negative U Marijuana (THC) Screen Negative HOSPITAL COURSE: Date of Admission:02/20/18 Date of Discharge: 02/22/18 Discharge Summary Reason For Visit: LET LOWER QUADRANT PAIN Condition: Improved - Instructions Diet, Activity, Other Instructions: You came in for abdominal pain. We gave you supportive care with fluids and pain management. We have started you on a new medication Pantoprazole (Protonix) 40mg ONCE a day for 14 days. Please take as prescribed. We have resumed your prescription and dosage for Rosuvastatin. Please continue all your prescribed medications as they were prescribed. Please follow up with your Primary Care Doctor within 1 week. Please return to the ER if you are experiencing worsening abdominal pain, diarrhea that won't stop, blood in your stool, or any other concerning symptoms. You need to follow with GI doctor as you will need an endoscopy and a colonoscopy Referrals: Alta Smith DO [Staff Physician] - 1 Week Terry Hood MD [Primary Care Provider] - 1 Week Disposition: HOME - Home Medications Comprehensive Discharge Medication List: Ambulatory Orders Atorvastatin Ca [Lipitor] 10 mg PO HS #30 tablet 02/22/18 Pantoprazole Sodium 40 mg PO DAILY #14 tablet. 02/22/18 - Discharge Referral Referred to [facility] Med P.C.: No
== END 2018-02-22 11:56 | disposition home or self-care (01) ==
LOC: JER 15:32 → JERBED 20:19 → J6S 02-21 04:12
PROVIDERS: ADMIT Internal Medicine; ATTEND Internal Medicine
PROC: 3E0337Z Introduction of Electrolytic and Water Balance Substance into Peripheral Vein, Percutaneous Approach (ICD-10-PCS; principal; 2018-02-20)
PROC: 3E033NZ Introduction of Analgesics, Hypnotics, Sedatives into Peripheral Vein, Percutaneous Approach (ICD-10-PCS; 2018-02-20)
PROC: 3E033NZ Introduction of Analgesics, Hypnotics, Sedatives into Peripheral Vein, Percutaneous Approach (ICD-10-PCS; 2018-02-20)
PROC: 3E033GC Introduction of Other Therapeutic Substance into Peripheral Vein, Percutaneous Approach (ICD-10-PCS; 2018-02-20)
DX: R10.12 Left upper quadrant pain (principal); Z87.19 Personal history of other diseases of the digestive system; F17.210 Nicotine dependence, cigarettes, uncomplicated; F19.11 Other psychoactive substance abuse, in remission; R74.8 Abnormal levels of other serum enzymes; R17 Unspecified jaundice
CPT/HCPCS: 36415; 71046-TC-FY; 74177-TC; 76705-TC; 80048; 80053; 80061; 80307; 82150; 82247; 82550; 83605; 83690; 83721; 83735; 84100; 84484; 85025; 85027; 93005; 93010; 99285-25; G0378; J0131; J7030

== ENCOUNTER 2018-07-30 15:03 | Emergency (ER) | payer OTHER ==
[2018-07-30 15:19] VITALS: BMI 24.0
--- NOTE | 2018-07-30 19:14 | PDOC ---
History of Present Illness - General Chief Complaint: Syncope/Near Syncope Stated Complaint: SYNCOPE Time Seen by Provider: 07/30/18 17:59 History Source: Patient Exam Limitations: No Limitations - History of Present Illness Initial Comments: 07/30/18 18:58 42M with a PMH of depression, pancreatitis, and hypertriglyceridemia who presents to the ER after having a possible syncopal episode. The patient states that he was in his normal state of health when he was using the restroom, felt lightheaded with palpitations and SOB, and then sat down and felt like he was losing consciousness. This was also accompanies with diaphoresis. He has never had this before. He is unsure if he completely lost consciousness but admits to feeling "hazy". He denies any acute complaints currently. He also admits to changing his medication to cariprazine 2 days ago and thinks this may be due to that. Past History - Past Medical History Allergies/Adverse Reactions: Allergies Allergy/AdvReac Type Severity Reaction Status Date / Time No Known Allergies Allergy Verified 07/30/18 15:11 Home Medications: Ambulatory Orders Atorvastatin Ca [Lipitor] 10 mg PO HS #30 tablet 02/22/18 Cariprazine HCl [Vraylar] 1.5 mg PO ASDIR 07/30/18 Anemia: No Asthma: No Cancer: No Cardiac Disorders: No CVA: No COPD: No CHF: No Dementia: No Diabetes: No GI Disorders: No Disorders: No HTN: No Hypercholesterolemia: No Liver Disease: No Seizures: No Thyroid Disease: No - Surgical History Abdominal Surgery: No Appendectomy: No Cardiac Surgery: No Cholecystectomy: No Lung Surgery: No Neurologic Surgery: No Orthopedic Surgery: No - Immunization History Immunization Up to Date: Yes - Suicide/Smoking/Psychosocial Hx Smoking History: Unknown if ever smoked Have you smoked in the past 12 months: Yes Number of Cigarettes Smoked Daily: 12 'Breaking Loose' booklet given: 11/03/17 Hx Alcohol Use: No Drug/Substance Use Hx: No Substance Use Type: None Hx Substance Use Treatment: No Review of Systems - Review of Systems Able to Perform ROS?: Yes Comments:: 07/30/18 19:14 GENERAL/CONSTITUTIONAL: No fever or chills. No weakness. HEAD, EYES, EARS, NOSE AND THROAT: No change in vision. No ear pain or discharge. No sore throat. CARDIOVASCULAR: + for palpitations and lightheadedness. No chest pain. RESPIRATORY: + for SOB. No cough, wheezing, or hemoptysis. GASTROINTESTINAL: No nausea, vomiting, diarrhea, constipation, or abdominal pain. GENITOURINARY: No dysuria, frequency, hematuria, or change in urination. MUSCULOSKELETAL: No joint or muscle swelling or pain. No neck or back pain. SKIN: No rash or lesions. NEUROLOGIC: + for syncope. No headache, numbness, tingling, focal weakness, or change in strength/sensation. Is the patient limited Georgian proficient: No *Physical Exam - Vital Signs Last Vital Signs Temp Pulse Resp BP Pulse Ox 98.2 F 101 H 18 119/74 100 07/30/18 15:18 07/30/18 15:18 07/30/18 15:18 07/30/18 15:18 07/30/18 15:18 - Physical Exam Comments: 07/30/18 19:15 GENERAL: Well developed, well nourished. Awake and alert. No acute distress. HEENT: Normocephalic, atraumatic. Hearing grossly normal. Moist mucous membranes. PERRLA, EOMI. No conjunctival pallor. Sclera are non-icteric. NECK: Supple. Full ROM. No JVD. CARDIOVASCULAR: Regular rate and rhythm. No murmurs, rubs, or gallops. PULMONARY: No evidence of respiratory distress. Lungs clear to auscultation bilaterally. No wheezing, rales or rhonchi. ABDOMINAL: Soft. Non-tender. Non-distended. No rebound or guarding. GENITOURINARY: No CVA tenderness bilaterally. MUSCULOSKELETAL: Normal range of motion at all joints. No bony deformities or tenderness. EXTREMITIES: No cyanosis. No clubbing. No edema. No calf tenderness or swelling. SKIN: Warm and dry. Normal capillary refill. No rashes. No jaundice. NEUROLOGICAL: Alert, awake, appropriate. Cranial nerves 2-12 grossly intact. Normal speech. Gait is normal without ataxia. PSYCHIATRIC: Cooperative. Good eye contact. Appropriate mood and affect. ED Treatment Course - LABORATORY CBC & Chemistry Diagram: 07/30/18 19:00 07/30/18 19:00 - RADIOLOGY Radiology Studies Ordered: Category Date Time Status CHEST PA & LAT [RAD] Stat Radiology 07/30/18 18:43 Ordered Medical Decision Making - Medical Decision Making 07/30/18 19:16 42M with a PMH of depression, pancreatitis, hypertriglyceridemia who presents to the ER after having a near syncopal episode. DDx includes medications changes to cariprazaine, although review of UTD does not show syncope to be a side effect. Will obtain labs, EKG, and troponin. Near syncopal episode was around 1030 so troponin would be elevated if ACS or cardiac insult. EKG NSR without any ischemic changes. PE unremarkable. Pending labs and imaging. 07/30/18 20:28 CBC, CMP, troponin negative. CXR negative. Pt well appearing and will f/u with PCP and cards. *DC/Admit/Observation/Transfer Diagnosis at time of Disposition: Syncope, near - Discharge Dispostion Disposition: HOME Condition at time of disposition: Stable Decision to Admit order: No - Referrals Referrals: Terry Hood MD [Primary Care Provider] - Ferdinand Camargo MD [Staff Physician] - - Patient Instructions Printed Discharge Instructions: DI for Syncope in Adults (Fainting) Additional Instructions: Your ER visit is not complete until your follow up with your primary care physician. Please follow up with your primary care physician in 1-2 days. Please return to the ER if you have any signs or symptoms of chest pain, shortness of breath, uncontrollable fever, chills, nausea, vomiting, numbness, tingling, or weakness in any part of your body, changes in vision, or slurred speech. Please take your medications as prescribed. Please return to the ER if symptoms persist, worsen, or new symptoms arise. - Post Discharge Activity
[2018-07-30 19:20] LABS: BASO % 0.6 % (0-2.0); EOS % 2.1 % (0-4.5); HEMATOCRIT 44.9 % (35.4-49); HEMOGLOBIN 15.4 GM/dL (11.7-16.9); LYMPH % 30.8 % (8-40); MCH 32.5 pg (25.7-33.7); MCHC 34.3 g/dl (32.0-35.9); MEAN CELL VOLUME 94.7 fl (80-96); MEAN PLT VOLUME 8.2 fl (7.5-11.1); MONO % 5.6 % (3.8-10.2); NEUT % 60.9 % (42.8-82.8); PLATELET COUNT 240 K/MM3 (134-434); RBC 4.74 M/mm3 (4.00-5.60); RDW 13.2 % (11.9-15.9); WHITE BLOOD COUNT 8.9 K/mm3 (4.0-10.0)
[2018-07-30 19:35] LABS: INR 0.89 (0.83-1.09); PROTHROMBIN TIME (PATIENT) 10.5 SEC (9.7-13.0)
[2018-07-30 19:51] LABS: ALBUMIN 4.3 g/dl (3.4-5.0); ALK PHOS 89 U/L (45-117); ANION GAP 7 MMOL/L (8-16); BILIRUBIN,TOTAL 0.7 mg/dL (0.2-1); BLOOD UREA NITROGEN 17 mg/dL (7-18); CALCIUM 9.4 mg/dL (8.5-10.1); CHLORIDE 105 mmol/L (98-107); CO2 29 mmol/L (21-32); CREATININE 0.8 mg/dL (0.55-1.3); GLUCOSE,RANDOM 92 mg/dL (74-106); LIPASE 169 U/L (73-393); POTASSIUM 4.1 mmol/L (3.5-5.1); SGOT/AST 16 U/L (15-37); SGPT/ALT 31 U/L (13-61); SODIUM 141 mmol/L (136-145); TOT PROT 7.4 g/dl (6.4-8.2)
--- NOTE | 2018-07-30 20:33 | PDOC ---
Documentation entered by Laurie Velasquez SCRIBE, acting as scribe for Asha Virgen MD. Asha Virgen MD: This documentation has been prepared by the Ron mathur Daisy, SCRIBE, under my direction and personally reviewed by me in its entirety. I confirm that the documentation accurately reflects all work, treatment, procedures, and medical decision making performed by me. Attending Attestation - Resident Resident Name: Ryder Shine - ED Attending Attestation I have performed the following: I have examined & evaluated the patient, The case was reviewed & discussed with the resident, I agree w/resident's findings & plan - HPI HPI: 07/30/18 18:49 this 42 yo male fainted while going to the bathroom - Physicial Exam PE: 07/30/18 20:31 slender 42 yo male who fainted while on the toilet head ncat eyes ame eomi neck supple lungs cta b/l cvs [id number] abd no rebound,no guarding skin warm and dry no cva tenderness neuro axox3,ambulatory - Medical Decision Making 07/30/18 18:50 2. Male with a history of chronic pancreatitis who recently started a new psych med nebulizer and had a fainting episode while going to the bathroom today 07/30/18 20:32 ekg is nsr negative trop labs unremarkable imp vasovagel episode
[2018-07-30 20:40] VITALS: BP 111/69; PULSE 87; TEMP 98.1
--- NOTE | 2018-07-31 13:45 | EKG ---
Test Reason : Blood Pressure : / mmHG Vent. Rate : 088 BPM Atrial Rate : 088 BPM P-R Int : 138 ms QRS Dur : 082 ms QT Int : 336 ms P-R-T Axes : 066 066 051 degrees QTc Int : 406 ms NORMAL SINUS RHYTHM NORMAL ECG WHEN COMPARED WITH ECG OF 20-FEB-2018 16:55, NO SIGNIFICANT CHANGE WAS FOUND Confirmed by MD Menjivar Daniel ([id number]) on 07/31/2018 1:45:06 PM Referred By: Confirmed By:Baljeet Menjivar MD
== END 2018-07-30 20:41 | disposition home or self-care (01) ==
LOC: JER 15:03
DX: R55 Syncope and collapse (principal); E78.1 Pure hyperglyceridemia; F32.9 Major depressive disorder, single episode, unspecified; K86.9 Disease of pancreas, unspecified
CPT/HCPCS: 36415; 71046-TC-FY; 80053; 82550; 83690; 84484; 85025; 85610; 93005; 93010; 99282-25